=== PATIENT | male | born 1940 ===

== ENCOUNTER 2021-10-06 17:10 | Inpatient (IN) | payer MEDICARE, SELFPAY ==
[2021-10-06] VITALS (9 sets, daily range): BP systolic 144–147; BP diastolic 72–89; PULSE 60–108; RESP 14–26; TEMP 36.7; O2SAT 92–97
--- NOTE | 2021-10-06 | DI.RAD_ITS ---
Exam(s) XR PORTABLE CHEST AP EXAM: XR PORTABLE CHEST AP CLINICAL HISTORY: Acute on chronic resp failure, pleural effusions TECHNIQUE: 2D digital imaging was performed of the chest. One image was obtained. An AP view was ob tained. COMPARISON: DX XR CHEST 1 VIEW from 10/06/2021 FINDINGS: MEDIASTINUM: Normal. HEART: Mild cardiomegaly. PULMONARY VASCULATURE: Normal. LUNGS: Bilateral basilar opacities. Prominent interstitial infiltrates are seen suggesting edema. PLEURAL SPACE: Bilateral small pleural effusions are present. No pneumothorax. BONE:Within normal limits for the patient's age. OTHER FINDINGS:Normal. IMPRESSION: There has been no significant change in appearance of the chest compared to the prior examination. DATA REPOSITORY: RADIATION DOSE DELIVERED:
--- NOTE | 2021-10-06 18:07 | RESPIRATORY ---
Pt's baseline is 4.5L O2 at home 01/09. [facility]. Pt denies having any kind of NIV device at home currently.
[2021-10-06 18:19] LABS: BE -5 mmol/L (-2-3); HCO3 21 mmol/L (22-26); pCO2 35 mmHg (35-45); pH 7.39 (7.35-7.45); pO2 60 mmHg (80-105); sO2 92 % (95-98); tCO2 19 mmol/L (23-27)
[2021-10-06 18:21] LABS: FIO2 40 %; FIO2L BIPAP 14/8 L; Site Right Radial
[2021-10-06 19:17] LABS: NT-proBNP 18049 pg/mL (<300)
[2021-10-06 19:21] LABS: Troponin I 229 ng/L (<or=60)
[2021-10-06 19:43] LABS: Procalcitonin < 0.1 ng/mL
[2021-10-06] MEDS: guaiFENesin 600 MG TABCR PO (20:09)
[2021-10-06] MEDS: Metoprolol 25 MG TAB PO (20:09)
[2021-10-06] MEDS: Atorvastatin 20 MG TAB PO (20:09)
[2021-10-06] MEDS: Furosemide 20 MG/2 ML VIAL IVP (20:10)
[2021-10-06] MEDS: hydrALAZINE 10 MG TAB 20 MG PO (20:10)
--- NOTE | 2021-10-06 20:56 | DI.VRAD_ITS ---
PROCEDURE INFORMATION: Exam: XR Chest Exam date and time: 10/06/2021 8:31 PM Age: 81 years old Clinical indication: Other: Acute on chronic resp failure, pleural effusions TECHNIQUE: Imaging protocol: Radiologic exam of the chest. Views: 1 view. COMPARISON: DX XR CHEST 1 VIEW 10/06/2021 2:03 PM FINDINGS: Lungs: Interstitial edema redemonstrated and bibasilar opacities Pleural spaces: Small effusions bilaterally. No pneumothorax. Heart/Mediastinum: Mild cardiomegaly. Bones/joints: Degenerative changes in the shoulders IMPRESSION: Grossly stable edema and bibasilar opacities/pleural effusions Dictated and Authenticated by: Andi Smith MD. Ordering:REID Calabrese MD
[2021-10-07] VITALS (12 sets, daily range): BP systolic 108–131; BP diastolic 60–79; PULSE 62–120; RESP 16–28; TEMP 36.3–36.7; O2SAT 90–96
[2021-10-07 06:38] LABS: Abs Immature Grans 0.05 10^3/uL (0.0-0.06); Absolute Lymphocyte Count 0.45 10^3/uL (1.2-3.4); Absolute Monocyte Count 0.32 10^3/uL (0.1-0.8); Absolute Neutrophil Count 4.54 10^3/uL (1.2-6.7); HCT 30.1 % (40.0-50.0); HGB 9.1 g/dL (13.5-17.5); Immature Grans % 0.9; Lymphocytes % 8.4; MCH 28.3 pg (27.0-33.0); MCHC 30.2 % (32.0-36.0); MCV 94 fL (80-95); MPV 10.3 fL (8.0-11.0); Neutrophils % 84.7; Platelet Count 259 10^3/uL (130-400); RBC 3.21 10^6/uL (4.36-5.78); RDW 16.7 % (11.8-14.1); RDW-SD 57.3 fL; WBC 5.36 10^3/uL (4.4-10.8)
--- NOTE | 2021-10-07 06:51 | W.PM.HP.N ---
Date of service: 10/06/21 Time of Service: 18:10 Assessment and Plan Assessment and plan (1) Acute and chronic respiratory failure: Status: Acute Assessment and plan: Pts baseline supplemental O2 need is 4.5L. ABG on admission while on BiPAP 22/09: pH 7.385. pCO2 34.5. pO2 59.8. HCO 20.6. + pulmonary edema and pleural effusions. Normal procal. Lactate 2.6. WBC [place] [id number]; partially d/t CKD. Etiology; acute CHF, pleural effusions in setting of pulmonary hypertension and COPD. Given 20mg IV lasix at [facility]. Administer 40mg IV now and monitor effect. Echocardiogram ordered. Now on CPAP and stable. (2) NSTEMI (non-ST elevated myocardial infarction): Status: Acute Assessment and plan: Troponin at [facility] was 245 (normal is <76). Repeat at [facility] on admission 229. Demand ischemia. Echocardiogram. Monitor. No known h/o CAD. (3) Pleural effusion: Status: Acute Assessment and plan: CXR, PA/Lat. Likely secondary to CHF. (4) COPD (chronic obstructive pulmonary disease): Status: Chronic Assessment and plan: Medication list from [facility] does not show any medications/inhalers for COPD. Will need to verify this and d/w pulmonology. PRN albuterol updrafts ordered. (5) CKD (chronic kidney disease) stage 4, GFR 15-29 ml/min: Status: Acute Assessment and plan: According to records from [facility], his baseline creatine in Nov was in the 1.25 range. Creatinine at [facility] at time of this current evaluation was 2.7. Monitor; particularly while diuresing. (6) Essential hypertension: Status: Acute Assessment and plan: His lisinopril was stopped when at [facility] and his hydralazine was doubled from 10mg TID to 20mg TID. Monitor. (7) Diabetes mellitus type 2 in obese: Status: Acute Assessment and plan: Cont his home dose of glipizide. Holding metformin in event he might require contrast for a study; restart if contrast not going to be administered. ACHS fingerstick glucose monitoring. Sensitive sliding scale insulin ordered. Diabetic carb controlled diet. (8) Hyperkalemia: Status: Acute Assessment and plan: Likely to resolve with diureses. Monitor. (9) COVID-19: Status: Acute Assessment and plan: According to patient and his [facility] records, he was positive on 09/19. Maintained then on his usual supplemental O2 per NC. Still + by PCR but is > 10 days from initial positive test; no Covid precautions. History of Present Illness History of Present Illness Chief Complaint: Shortness of air Narrative: This is an 81 yo male with a PMH of CKD, COPD, chronic respiratory failure, DM2, Covid-19, HTN, pulmonary hypertension, restrictive lung disease. He presented to [facility] initially on the day of this admission. Found to be in acute on chronic respiratory failure and, on imaging, to have mod. to lg. bilateral pleural effusions. He was placed on BiPAP. He was accepted for transfer to [facility] given their hospitalists hesitancy to admit him d/t lack of specialty care at their facility. He states increasing SOA over appx 4 days. No purulent sputum. No fever. No CP/palpitations. He transferred from [facility] to [facility] in the month d/t acute kidney failure; thought to be ATN secondary to overdiuresis and diarrhea. While there he was dxd with Covid-19 on 09/19/21. He endorses requiring his usual 4.5L supplemental O2 per NC while in the hospital at [facility]. Review of Systems All systems reviewed & are unremarkable except as noted in HPI and below PFSH All Active Problems (Updated 10/07/21 @ 14:52 by Shellie Rea MD) Pulmonary hypertension (Acute) COVID-19 (Acute) Hyperkalemia (Acute) Diabetes mellitus type 2 in obese (Acute) Essential hypertension (Acute) CKD (chronic kidney disease) stage 4, GFR 15-29 ml/min (Acute) COPD (chronic obstructive pulmonary disease) (Chronic) Pleural effusion (Acute) NSTEMI (non-ST elevated myocardial infarction) (Acute) Acute and chronic respiratory failure (Acute) Social History Smoking/Tobacco Use Status: Unknown Smoking risk assessment performed?: Yes Meds Allergies and Home Medications Allergies Allergy/AdvReac Type Severity Reaction Status Date / Time No Known Allergies Allergy Unverified 10/06/21 20:14 Exam Narrative Exam Narrative: Pt lying in bed. CPAP in place. Conversant. Const General: cooperative and no acute distress Nutritional Appearance: obese Orientation: alert Eyes General: appearance normal, both eyes and all related structures Sclera: sclerae normal EOM: no movement deficit Neck Neck: full ROM and JVD Resp Effort & Inspection: normal respiratory effort and able to speak in complete sentences Auscultation: diminished lung sounds bilaterally (throughout but more pronounced in bases) and rhonchi Cardio Rate: tachycardic Rhythm: regular rhythm Heart Sounds: S1 normal and S2 normal GI Inspection: obesity Palpation: soft and nontender Auscultation: normal bowel sounds Skin General skin exam: no rashes or lesions noted and ecchymosis (Scattered on all extremities. ) Neuro General: no focal motor deficits Cranial Nerves: facial strength normal Cognition: normal cognition Speech: speech normal Extrem General: no calf tenderness, edema and other (CESAR hose in place) Psych Appearance: grossly normal Affect: normal affect Results Labs Result diagrams: 10/07/21 05:31 10/07/21 05:31 Labs: Laboratory Results - last 24 hr 10/06/21 10/06/21 10/06/21 18:20 18:35 18:35 WBC RBC Hgb Hct MCV MCH MCHC RDW Plt Count MPV Immature Gran % Neutrophils % Lymphocytes % Monocytes % Eosinophils % Basophils % Nucleated RBC % Absolute Neutrophils Absolute Lymphocytes Absolute Monocytes Absolute Eosinophils Absolute Basophils ABG Sample Site Right Radial ABG pH 7.39 ABG pCO2 35 ABG pO2 60 L ABG HCO3 21 L ABG Total CO2 19 L ABG O2 Saturation 92 L ABG Base Excess -5 L VBG pH VBG pCO2 VBG pO2 VBG HCO3 VBG Total CO2 VBG O2 Saturation VBG Base Excess Oxygen Liter Flow BIPAP 14/8 FiO2 40 Troponin I 229 H* NT-Pro-B Natriuret Pep 50039 H Procalcitonin < 0.1 10/06/21 10/07/21 Unknown 05:31 WBC 5.36 RBC 3.21 L Hgb 9.1 L Hct 30.1 L MCV 94 MCH 28.3 MCHC 30.2 L RDW 16.7 H Plt Count 259 MPV 10.3 Immature Gran % 0.9 Neutrophils % 84.7 Lymphocytes % 8.4 Monocytes % 6.0 Eosinophils % 0.0 Basophils % 0.0 Nucleated RBC % 0.0 Absolute Neutrophils 4.54 Absolute Lymphocytes 0.45 L Absolute Monocytes 0.32 Absolute Eosinophils 0.00 Absolute Basophils 0.00 ABG Sample Site ABG pH ABG pCO2 ABG pO2 ABG HCO3 ABG Total CO2 ABG O2 Saturation ABG Base Excess VBG pH Cancelled VBG pCO2 Cancelled VBG pO2 Cancelled VBG HCO3 Cancelled VBG Total CO2 Cancelled VBG O2 Saturation Cancelled VBG Base Excess Cancelled Oxygen Liter Flow FiO2 Troponin I NT-Pro-B Natriuret Pep Procalcitonin Last Vital Signs Temp 36.7 C 10/06/21 18:22 Pulse 60 10/06/21 23:00 Resp 21 10/06/21 19:28 BP 144/89 H 10/06/21 19:28 Pulse Ox 97 10/06/21 19:28
[2021-10-07 06:53] LABS: Anion Gap 4.6 mmol/L (3-11); BUN 48 mg/dL (7-18); CO2 26.4 mmol/L (21.0-32.0); CREATININE 2.9 mg/dL (0.70-1.30); Calcium 8.5 mg/dL (8.5-10.1); Chloride 106 mmol/L (98-107); Estimated GFR 20.89 (mL/min/1.73m2); Glucose 193 mg/dL (74-106); Magnesium 1.7 mg/dL (1.8-2.4); Potassium 5.8 mmol/L (3.5-5.1); Sodium 137 mmol/L (136-145)
[2021-10-07 07:49] LABS: Troponin I 177 ng/L (<or=60)
--- NOTE | 2021-10-07 08:00 | DI.US_ITS ---
APPROVED REPORT EXAM: Comprehensive 2D, Doppler, and color-flow Echocardiogram Patient Location: In-Patient Room/Bed: [id number] Creative Services Director: Sabina Trujillo RDCS (AE) Indications: Pulmonary vascular congestion, copd, HTN Other Information Study Quality: Adequate Conclusion Normal left ventricular wall thickness and chamber size. Estimated ejection fraction is 60%. Wall m otion is normal The right atrium and right ventricle are moderately dilated. Left atrium is mildly dilated The aortic valve is trileaflet and sclerotic, with trace to mild regurgitation Mitral annular calcification, mild mitral regurgitation Normal tricuspid valve with moderate regurgitation. Estimated right ventricular systolic pressure is 75 mmHg, severe pulmonary hypertension Normal pulmonic valve with mild to moderate regurgitation Mildly dilated ascending aorta Wall motion Left Ventricle The left ventricle is normal size. The left ventricular systolic function is normal. The left ventric ular ejection fraction is within the normal range. There is normal left ventricular wall thickness. T here is normal LV segmental wall motion. There is no ventricular septal defect visualized. LVEF is 58 %. Right Ventricle Right ventricle is moderately dilated. The right ventricular systolic function is normal. The RVSP is 75.2 mmHg. Atria Left atrium is mildly dilated. Right atrium is moderately dilated. The interatrial septum is intact w ith no evidence for an atrial septal defect. Aortic Valve The Aortic valve is sclerotic. Aortic valve is trileaflet. There is no aortic valvular stenosis. Trac e to mild aortic regurgitation. Mitral Valve Moderate mitral annular calcification. No evidence of mitral valve stenosis. Mild mitral regurgitatio n. Tricuspid Valve The tricuspid valve is normal in structure. There is no tricuspid valve stenosis. Moderate tricuspid regurgitation. Pulmonic Valve The pulmonary valve is normal in structure. There is no pulmonic valvular stenosis. Mild to moderate pulmonic regurgitation. Great Vessels The aortic root is normal in size. The ascending aorta is mildly dilated. Aortic arch is not well vis ualized. The IVC collapses <50% with inspiration. Pericardium Trace pericardial effusion. 2D Dimensions IVSD d PLAX 0.87 cm M: 0.6-1.2 LV Vol A2C d MOD 93.2 mL LVPW d PLAX 0.89 cm M: 0.6 - 1.2 LV Vol A4C d MOD 109.3 mL LVID d PLAX 4.44 cm M: 4.2 - 5.8 LV EF A4C MOD 57.0 % LVDs 3.10 cm M: 2.5 - 4.0 LV EF A2C MOD 58.0 % Ao Root d 3.08 cm M: 3.1 - 3.7 LV EF Biplane MOD 58.4 % RA Area A4C 35.49 cm2 SV 61.19 mL RA Vol/ BSA A4C s A-L 66.5 mL/m2 SV Index 25.70 mL/m2 Ao Asc Diam d 3.55 cm M: 2.6 - 3.4 LV EF Teichholz 56.7 % LVEF (Parrish's) 58.39 % M: 52 - 72 LV Volume 74.41 mL M: 62 - 150 LV Volume Index 31.26 mL/m2 M: 34 - 74 LV Vol Biplane MOD 104.8 mL FS 29.50 % M-Mode TAPSE 1.17 cm (M/F) >1.7 LV Diastology MV E' medial 0.076 (>0.07 m/s) MV E Vmax 1.23 (0.4-1.3 m/s) LV E/e MED 16.05 (<14) MV E' lateral 0.095 (>0.1 m/s) LV E/e LAT 12.90 (<14) MV E/E' medial 16.09 MV E/E' lateral 12.94 Aortic Valve LVOT Area 3.02 cm2 AoV Area Vmax 1.81 cm2 LVOT Vmax 0.79 m/s AoV Area/ BSA (Vmax) 0.76 cm2/m2 LVOT Mean Troy. 0.51 m/s CHIKA Mean Troy. 1.80 cm2 LVOT Peak Grad 2.5 mmHg CHIKA Mean Troy. Index 0.76 cm2/m2 LVOT Mean Grad 1.2 mmHg AR DT 1553 msec LVOT VTI 0.173 m AR PHT 450 msec LVOT Diam s 1.95 cm AoV Vmax 1.32 m/s Velocity Ratio 0.59 AoV Mean Troy. 0.86 m/s AoV Peak Grad 7.0 mmHg LVOT SV 52.43 mL AoV Mean Grad 3.3 mmHg AoV VTI 0.216 m AoV Area VTI 2.43 cm2 AoV Area/ BSA (VTI) 1.02 cm/m2 Mitral Valve MV DT 161 (160-240 msec) MV PHT 47 msec MV Area PHT 4.71 cm2 MV VTI 0.259 m MV Area VTI 2.02 (4.0-6.0 cm2) Pulmonary Valve PV Vmax 1.17 (0.5-1.5 m/s) RVOT Peak Gr. 1.07 mmHg PV Peak Grad 5.5 mmHg RVOT Mean Gr. 0.50 mmHg PV Mean Grad 3.8 mmHg RVOT VTI 0.098 m PV VTI 0.236 m RVOT Vmax 0.52 m/s Tricuspid Valve TR Peak Grad 67.1 mmHg TR Vmax 4.10 m/s RA Pressure 8.00 mmHg RVSP (TR) 75.2 mmHg
--- NOTE | 2021-10-07 09:05 | W.PULMCON ---
General Date Of Service Date of service: 10/07/21 Time of Service: 09:05 Reason for Consult: COPD Assessment and Plan Assessment and plan (1) COPD (chronic obstructive pulmonary disease): Status: Chronic (2) Pulmonary hypertension: Status: Acute Assessment and plan: This is a 81 yo man who has HFpEF, A. fib on Eliquis, pulmonary hypertension and COPD in addition to hypoxic respiratory failure on home O2 who is admitted for acute on chronic hypoxic respiratory failure. He is volume overloaded and I do not believe he is in a COPD exacerbation. He had had a RHC at [facility] that confirmed his PH with a wedge of 20. I suspect his pulmonary hypertension is multifactorial, but I cannot see that CTEPH has been evaluated, nor has ASIF. While he is here, we can get a VQ scan to assess for CTEPH but this should wait until he is closer to euvolemia. As an outpatient he should have a sleep study if not already completed. I do think he would benefit from outpatient pulmonary care for both the pulmonary hypertension and the COPD. Since he is [facility], I will need a referral from his PCP before I can see him in the clinic. COPD - start Stiolto - recommend he continue this as an outpatient - continue prn albuterol - Mucinex - recommend outpatient PFT's - would recommend outpatient pulmonary referral - need PCP referral as he is a [facility] patient Acute on chronic hypoxic respiratory failure - supplemental O2 for sat goal 88-92% - IS and VibraPEP Pulmonary Hypertension - recommend VQ scan once close to euvolemia - recommend outpatient sleep study History of Present Illness Narrative: This is an 81 yo man admitted to [facility] for respiratory failure due to volume overload. He has a history of reported COPD but is only on oxygen for this. He has not had pulmonary function testing completed in the past and states he has never been on inhalers. He has never seen a dry cell sealer before. He tells me his breathing is improved on the mask. He does not wear CPAP or BiPAP at home at night time. His echocardiogram show severe pulmonary hypertension with RVSP of 75mmHg which is likely the main contributor to his need of oxygen. His CXR is consistent with volume overload but his echo does not show heart failure as a cause of his severe pulmonary hypertension, although he does have diastolic heart failure as well as A. fib. He has seen [facility] cardiology in the past and has had a RHC for his PH: PAP: 75/35, PCW: 20, CO: 5 I cannot see that he has been fully evaluated for the etiology of his pulmonary hypertension. He is a poor historian. Review of Systems All systems reviewed & are unremarkable except as noted in HPI and below PFSH All Active Problems (Updated 10/07/21 @ 14:52 by Shellie Rea MD) Pulmonary hypertension (Acute) COVID-19 (Acute) Hyperkalemia (Acute) Diabetes mellitus type 2 in obese (Acute) Essential hypertension (Acute) CKD (chronic kidney disease) stage 4, GFR 15-29 ml/min (Acute) COPD (chronic obstructive pulmonary disease) (Chronic) Pleural effusion (Acute) NSTEMI (non-ST elevated myocardial infarction) (Acute) Acute and chronic respiratory failure (Acute) Social History Smoking/Tobacco Use Status: Unknown Smoking risk assessment performed?: Yes Visit Medication and Allergies Active Medications Generic Name Dose Route Start Last Admin Trade Name Freq PRN Reason Stop Dose Admin Acetaminophen 0 mg 10/06/21 17:10 Acetaminophen 325 Mg Tab PO Q4H PRN PRN Albuterol Sulfate 2.5 mg 10/06/21 17:10 Albuterol 2.5 Mg/3 Ml Inh Soln Vial UPD Q2H PRN PRN Apixaban 5 mg 10/07/21 08:30 Apixaban 5 Mg Tab PO BID MYNOR Atorvastatin Calcium 20 mg 10/06/21 20:00 10/06/21 20:09 Atorvastatin 20 Mg Tab PO 20 mg QPM MYNOR Administration Carboxymethylcellulose Sodium 1 each 10/06/21 19:12 Refresh Plus Eye Drops 0.4ml OU PRN PRN Dextrose 0 gm 10/06/21 20:41 Glucose 40% Oral Solution 15 Gm/37.5 Gm Tube PO DIRECTED PRN Dextrose/Water 0 gm 10/06/21 20:41 Dextrose 50%-Water 25 Gm/50 Ml Syr IVP DIRECTED PRN Dimethicone/Zinc Oxide 0 gm 10/06/21 17:10 Meng Protect Cream 142 Gm Tube TP PRN PRN Glipizide 5 mg 10/07/21 07:30 Glipizide 5 Mg Tab PO BID@0730,1630 MYNOR Guaifenesin 600 mg 10/06/21 20:00 10/06/21 20:09 Guaifenesin 600 Mg Tabcr PO 600 mg BID MYNOR Administration Hydralazine HCl 20 mg 10/06/21 20:00 10/06/21 20:10 Hydralazine 10 Mg Tab PO 20 mg TID [facility] Administration Insulin Aspart 0 units 10/07/21 08:00 Insulin Aspart 300 Units/3 Ml Pen SC 0800,1200,1700 [facility] Protocol Magnesium Oxide 400 mg 10/07/21 08:30 Magnesium Oxide 400 Mg Tab PO BID [facility] Metoprolol Tartrate 25 mg 10/06/21 20:00 10/06/21 20:09 Metoprolol 25 Mg Tab PO 25 mg BID MYNOR Administration Polyethylene Glycol 17 gm 10/06/21 17:10 Polyethylene Glycol 3350 17 Gm Packet PO DAILY PRN PRN Constipation Tamsulosin HCl 0.8 mg 10/07/21 08:30 Tamsulosin 0.4 Mg Capcr PO DAILY [facility] Allergies No Known Allergies Allergy (Unverified 10/06/21 20:14) Exam Narrative Exam Narrative: Gen: NAD, normal respiratory effort, obese HENT: PERRL Chest: No respiratory distress, normal appearance of chest, clear to auscultation bilaterally, no crackles or wheezes, normal inspiratory effort Heart: regular rate and rhythym, no murmurs, rubs or gallops Abdomen: Non-distended, soft, non tender Extremities: LE edema Neuro: AAOx3 , non focal Psych: cooperative, appropriate mental affect Results Last Vital Signs Temp 36.7 C 10/06/21 18:22 Pulse 79 10/07/21 08:51 Resp 17 10/07/21 08:51 BP 144/89 H 10/06/21 19:28 Pulse Ox 95 10/07/21 08:51 Labs Result diagrams: 10/07/21 05:31 10/07/21 05:31 Labs: Laboratory Results - last 24 hr 10/06/21 10/06/21 10/06/21 18:20 18:35 18:35 WBC RBC Hgb Hct MCV MCH MCHC RDW Plt Count MPV Immature Gran % Neutrophils % Lymphocytes % Monocytes % Eosinophils % Basophils % Nucleated RBC % Absolute Neutrophils Absolute Lymphocytes Absolute Monocytes Absolute Eosinophils Absolute Basophils ABG Sample Site Right Radial ABG pH 7.39 ABG pCO2 35 ABG pO2 60 L ABG HCO3 21 L ABG Total CO2 19 L ABG O2 Saturation 92 L ABG Base Excess -5 L VBG pH VBG pCO2 VBG pO2 VBG HCO3 VBG Total CO2 VBG O2 Saturation VBG Base Excess Oxygen Liter Flow BIPAP 14/8 FiO2 40 Sodium Potassium Chloride Carbon Dioxide Anion Gap BUN Creatinine Estimated GFR/1.73 m2 Glucose Calcium Magnesium Troponin I 229 H* NT-Pro-B Natriuret Pep 75285 H Procalcitonin < 0.1 10/06/21 10/07/21 10/07/21 Unknown 05:31 05:31 WBC 5.36 RBC 3.21 L Hgb 9.1 L Hct 30.1 L MCV 94 MCH 28.3 MCHC 30.2 L RDW 16.7 H Plt Count 259 MPV 10.3 Immature Gran % 0.9 Neutrophils % 84.7 Lymphocytes % 8.4 Monocytes % 6.0 Eosinophils % 0.0 Basophils % 0.0 Nucleated RBC % 0.0 Absolute Neutrophils 4.54 Absolute Lymphocytes 0.45 L Absolute Monocytes 0.32 Absolute Eosinophils 0.00 Absolute Basophils 0.00 ABG Sample Site ABG pH ABG pCO2 ABG pO2 ABG HCO3 ABG Total CO2 ABG O2 Saturation ABG Base Excess VBG pH Cancelled VBG pCO2 Cancelled VBG pO2 Cancelled VBG HCO3 Cancelled VBG Total CO2 Cancelled VBG O2 Saturation Cancelled VBG Base Excess Cancelled Oxygen Liter Flow FiO2 Sodium 137 Potassium 5.8 H Chloride 106 Carbon Dioxide 26.4 Anion Gap 4.6 BUN 48 H Creatinine 2.9 H Estimated GFR/1.73 m2 20.89 Glucose 193 H Calcium 8.5 Magnesium 1.7 L Troponin I NT-Pro-B Natriuret Pep Procalcitonin 10/07/21 05:31 WBC RBC Hgb Hct MCV MCH MCHC RDW Plt Count MPV Immature Gran % Neutrophils % Lymphocytes % Monocytes % Eosinophils % Basophils % Nucleated RBC % Absolute Neutrophils Absolute Lymphocytes Absolute Monocytes Absolute Eosinophils Absolute Basophils ABG Sample Site ABG pH ABG pCO2 ABG pO2 ABG HCO3 ABG Total CO2 ABG O2 Saturation ABG Base Excess VBG pH VBG pCO2 VBG pO2 VBG HCO3 VBG Total CO2 VBG O2 Saturation VBG Base Excess Oxygen Liter Flow FiO2 Sodium Potassium Chloride Carbon Dioxide Anion Gap BUN Creatinine Estimated GFR/1.73 m2 Glucose Calcium Magnesium Troponin I 177 H* NT-Pro-B Natriuret Pep Procalcitonin Imaging Chest x-ray: report reviewed and image reviewed
--- NOTE | 2021-10-07 09:26 | PDOC.CMIN ---
- If Service Date Differs Date of service: 10/07/21 Time of Service: 09:26 Care Management Initial Assess REASON FOR HOSPITALIZATION:: Acute and chronic respiratory failure PAST MEDICAL HISTORY/PAST SURGICAL HISTORY:: All Active Problems (Updated 10/07/21 @ 07:13 by Guanakito Jordan MD). COVID-19 (Acute). Hyperkalemia (Acute). Diabetes mellitus type 2 in obese (Acute). Essential hypertension (Acute). CKD (chronic kidney disease) stage 4, GFR 15-29 ml/min (Acute). COPD (chronic obstructive pulmonary disease) (Chronic). Pleural effusion (Acute). NSTEMI (non-ST elevated myocardial infarction) (Acute). Acute and chronic respiratory failure (Acute) PREVIOUS FUNCTIONAL STATUS/SOCIAL/FAMILY SUPPORTS:: Timi lives in [place] with his Emily. He is retired from the [employer] and shares that he is [facility] connected. Timi requires some assistance with his ADL's. He recently started using a rolling walker with a seat. His provides his transportation when she us able, other times he uses EMS for transportation. CURRENT FUNCTIONAL STATUS:: Timi was sitting up in his chair when CM met with him. He is alert, oriented and easy to engage in conversation. Timi shares with CM that he's has an itchy, scaly area on his buttocks since his stay in [place]. He shares that the area is quite painful. CM reported to nursing and will continue to follow. ADVANCE DIRECTIVES:: None on file. Has patient been provided with info about the portal/API?: Yes Did the patient sign up for the portal?: No CODE STATUS:: Full Code INSURANCE COVERAGE / FINANCIAL ISSUES:: Medicare CURRENT HOME/COMMUNITY SERVICES/EQUIPMENT:: Home O2. Left Chair. Has a Cane and Rolling Walker with a Seat. Per pt, [facility] connected. CM left message for Tammy at the [facility]. PRIMARY CARE PHYSICIAN:: Jonathan Parson POTENTIAL DISCHARGE NEEDS:: Discharge plan of care, follow up appointments, Home O2 tank to transport. PATIENT/FAMILY EDUCATION NEEDS:: Review discharge instructions, limitations, medications and plan to follow up with community providers. ask me three. ANTICIPATED BARRIERS TO DISCHARGE:: None identified. TRANSPORTATION:: Via private vehicle with family vs. EMS transportation. PLAN:: Timi is being closely monitored and treated for respiratory failure and bilateral pleural effusions. Anticipate, Timi will discharge home via private vehicle with family vs EMS transport, when medically ready. He will need Oxygen to transport, and is on 4.5 L NC baseline. Timi will follow up with community providers and discharge plan of care as prescribed. CM will continue to follow.
[2021-10-07] MEDS: Magnesium Oxide 400 MG TAB PO ×2 (09:41→20:15)
[2021-10-07] MEDS: glipiZIDE 5 MG TAB PO ×2 (09:41→16:36)
[2021-10-07] MEDS: guaiFENesin 600 MG TABCR PO ×2 (09:41→20:18)
[2021-10-07] MEDS: Metoprolol 25 MG TAB PO ×2 (09:42→20:18)
[2021-10-07] MEDS: Tamsulosin 0.4 MG CAPCR 0.8 MG PO (09:42)
[2021-10-07] MEDS: hydrALAZINE 10 MG TAB 20 MG PO ×3 (09:43→20:15)
[2021-10-07] MEDS: Insulin Aspart 300 UNITS/3 ML PEN SC ×2 (09:50→12:47)
--- NOTE | 2021-10-07 11:54 | W.INDIABCONS ---
Date of service: 10/07/21 Time of Service: 11:54 Diabetes Inpatient Consult Reason for Visit: Consult for diabetes education DESCRIPTION/ASSESSMENT: Mr. Iraheta is admitted s/p NSTEMI. His BMI is 37 kg/m2 c/w class 2 obesity. He is on a cho consistent low sodium diet for diabetes and htn. There is no A1C available but given his age and comorbidities, a reasonable A1C target would be 8.0 or less. Blood sugars naturally are above target given the physiologic stress he is under. He is ordered for glipizide 5 mg PO bid and aspart correction. INTERVENTION: Mr. Iraheta may require some basal insulin while he is here given the physiologic stress that is increasing his blood sugars. Unable to do diabetes education at this time due to COVID status. Given his age and especially if his A1C is under 8, he may be best managed with relying on medication to keep his blood sugars reasonable. PLAN: Will continue to follow weight, blood sugar, and PO intake. Will remain available for diabetes education for patient should he be interested. Thank you for the consult. Time Spent in Nutritional Counseling and Treatment: 0
[2021-10-07] MEDS: Apixaban 5 MG TAB 2.5 MG PO ×2 (12:46→20:16)
--- NOTE | 2021-10-07 18:48 | W.PM.PROGNOT ---
Date of Service Date of service: 10/07/21 Time of Service: 18:49 Assessment and Plan Assessment and plan (1) Acute and chronic respiratory failure: Status: Acute Assessment and plan: Pts baseline supplemental O2 need is 4.5L. Now back to baseline. ABG on admission while on BiPAP 22/09: pH 7.385. pCO2 34.5. pO2 59.8. HCO 20.6. + pulmonary edema and pleural effusions. Normal procal. Lactate 2.6. WBC [place] [address]; partially d/t CKD. Severe pulmonary hypertension seen on echocardiogram. PAP of 75/35. Also diastolic CHF. Pulmonary consult appreciated. Will need pulmonary f/u as outpt (2) NSTEMI (non-ST elevated myocardial infarction): Status: Acute Assessment and plan: Troponin at [facility] was 245 (normal is <76). Repeat at [facility] on admission 229 > 117 Demand ischemia. Echocardiogram w/o wall motion abnormalities. EF of 65% Monitor. No known h/o CAD. (3) COPD (chronic obstructive pulmonary disease): Status: Chronic Assessment and plan: Medication list from [facility] does not show any medications/inhalers for COPD. PRN albuterol updrafts ordered. Pulmonary initiated Stiolto. Mucinex. Vibrapep and IS. Outpt PFT's and f/u with pulmonary ([facility] so needs outpt referral from PCP to f/u with pulmonary) (4) CKD (chronic kidney disease) stage 4, GFR 15-29 ml/min: Status: Acute Assessment and plan: According to records from [facility], his baseline creatine in Nov was in the 1.25 range. Creatinine at [facility] at time of this current evaluation was 2.7. Monitor; particularly while diuresing. (5) Essential hypertension: Status: Acute Assessment and plan: His lisinopril was stopped when at [place] and his hydralazine was doubled from 10mg TID to 20mg TID. Monitor. (6) Diabetes mellitus type 2 in obese: Status: Acute Assessment and plan: Cont his home dose of glipizide. Restart metformin. ACHS fingerstick glucose monitoring. Sensitive sliding scale insulin ordered. Diabetic carb controlled diet. (7) Hyperkalemia: Status: Acute Assessment and plan: Related to CKD [place] jean 1. Monitor. (8) COVID-19: Status: Acute Assessment and plan: According to patient and his [place] records, he was positive on 09/19. Maintained then on his usual supplemental O2 per NC. Still + by PCR but is > 10 days from initial positive test; no Covid precautions. Subjective Subjective Patient reports: no new complaints, feels better, tolerating a regular diet and afebrile; denies nausea or vomiting Exam Narrative Exam Narrative: Gen:Lying in bed. Conversant. HENT: Sclera clear. Chest: Clear. No increased WOB. Heart: regular rate and rhythym. No murmur. Abdomen: Non-distended, soft, non tender Extremities: LE edema. TEDs in place. Neuro: AAOx3 . No focal muscle weakness. Psych: Affect normal. Cognition normal. Objective Last Vital Signs Temp 36.3 C L 10/07/21 15:30 Pulse 81 10/07/21 15:30 Resp 22 10/07/21 15:30 BP 108/71 10/07/21 15:30 Pulse Ox 92 10/07/21 15:30 Laboratory Results - last 24 hr 10/06/21 10/06/21 10/07/21 18:35 18:35 05:31 WBC RBC Hgb Hct MCV MCH MCHC RDW Plt Count MPV Immature Gran % Neutrophils % Lymphocytes % Monocytes % Eosinophils % Basophils % Nucleated RBC % Absolute Neutrophils Absolute Lymphocytes Absolute Monocytes Absolute Eosinophils Absolute Basophils Sodium 137 Potassium 5.8 H Chloride 106 Carbon Dioxide 26.4 Anion Gap 4.6 BUN 48 H Creatinine 2.9 H Estimated GFR/1.73 m2 20.89 Glucose 193 H Calcium 8.5 Magnesium 1.7 L Troponin I 229 H* NT-Pro-B Natriuret Pep 24933 H Procalcitonin < 0.1 10/07/21 10/07/21 05:31 05:31 WBC 5.36 RBC 3.21 L Hgb 9.1 L Hct 30.1 L MCV 94 MCH 28.3 MCHC 30.2 L RDW 16.7 H Plt Count 259 MPV 10.3 Immature Gran % 0.9 Neutrophils % 84.7 Lymphocytes % 8.4 Monocytes % 6.0 Eosinophils % 0.0 Basophils % 0.0 Nucleated RBC % 0.0 Absolute Neutrophils 4.54 Absolute Lymphocytes 0.45 L Absolute Monocytes 0.32 Absolute Eosinophils 0.00 Absolute Basophils 0.00 Sodium Potassium Chloride Carbon Dioxide Anion Gap BUN Creatinine Estimated GFR/1.73 m2 Glucose Calcium Magnesium Troponin I 177 H* NT-Pro-B Natriuret Pep Procalcitonin
[2021-10-07] MEDS: Sodium Zirconium Cyclosilicate 10 GM PKT PO (20:13)
[2021-10-07] MEDS: Atorvastatin 20 MG TAB PO (20:15)
[2021-10-07] MEDS: Simvastatin 40 MG TAB PO (20:18)
[2021-10-08] VITALS (8 sets, daily range): BP systolic 108–126; BP diastolic 67–80; PULSE 65–108; RESP 16–24; TEMP 35.2–36.8; O2SAT 92–95
[2021-10-08 06:19] LABS: Abs Immature Grans 0.03 10^3/uL (0.0-0.06); Absolute Basophil Count 0.02 10^3/uL (0.0-0.2); Absolute Eosinophil Count 0.02 10^3/uL (0.0-0.7); Absolute Lymphocyte Count 0.76 10^3/uL (1.2-3.4); Absolute Monocyte Count 0.73 10^3/uL (0.1-0.8); Absolute Neutrophil Count 5.24 10^3/uL (1.2-6.7); Basophils % 0.3; Eosinophils % 0.3; HCT 30.1 % (40.0-50.0); HGB 9.3 g/dL (13.5-17.5); Immature Grans % 0.4; Lymphocytes % 11.2; MCH 28.8 pg (27.0-33.0); MCHC 30.9 % (32.0-36.0); MCV 93 fL (80-95); MPV 10.3 fL (8.0-11.0); Monocytes % 10.7; Neutrophils % 77.1; Platelet Count 283 10^3/uL (130-400); RBC 3.23 10^6/uL (4.36-5.78); RDW 16.6 % (11.8-14.1); RDW-SD 56.5 fL
[2021-10-08 06:27] LABS: Anion Gap 6.7 mmol/L (3-11); BUN 58 mg/dL (7-18); CO2 26.3 mmol/L (21.0-32.0); CREATININE 2.8 mg/dL (0.70-1.30); Calcium 8.1 mg/dL (8.5-10.1); Chloride 105 mmol/L (98-107); Estimated GFR 21.71 (mL/min/1.73m2); Glucose 103 mg/dL (74-106); Magnesium 1.8 mg/dL (1.8-2.4); Potassium 5.2 mmol/L (3.5-5.1); Sodium 138 mmol/L (136-145)
[2021-10-08] MEDS: Tiotropium/Olodaterol 10 PUFF INHALER 2 PUFF IH (07:37)
[2021-10-08] MEDS: Apixaban 5 MG TAB 2.5 MG PO (08:33)
[2021-10-08] MEDS: Magnesium Oxide 400 MG TAB PO ×2 (08:33→19:26)
[2021-10-08] MEDS: glipiZIDE 5 MG TAB PO ×2 (08:33→16:44)
[2021-10-08] MEDS: metFORMIN 500 MG TAB 1000 MG PO ×2 (08:33→16:44)
[2021-10-08] MEDS: Metoprolol 25 MG TAB PO ×2 (08:33→19:27)
[2021-10-08] MEDS: guaiFENesin 600 MG TABCR PO ×2 (08:33→19:26)
[2021-10-08] MEDS: hydrALAZINE 10 MG TAB 20 MG PO ×3 (08:33→19:26)
[2021-10-08] MEDS: Tamsulosin 0.4 MG CAPCR 0.8 MG PO (08:33)
[2021-10-08] MEDS: Polyethylene Glycol 3350 17 GM PACKET PO (08:33)
[2021-10-08] MEDS: Insulin Aspart 300 UNITS/3 ML PEN SC (12:24)
[2021-10-08] MEDS: metOLazone 2.5 MG TAB 5 MG PO (12:24)
--- NOTE | 2021-10-08 13:27 | W.PM.PROGNOT ---
Date of Service Date of service: 10/08/21 Time of Service: 13:27 Assessment and Plan Assessment and plan (1) Acute and chronic respiratory failure: Status: Acute Assessment and plan: Pts baseline supplemental O2 need is 4.5L. Now back to baseline. ABG on admission while on BiPAP 22/09: pH 7.385. pCO2 34.5. pO2 59.8. HCO 20.6. + pulmonary edema and pleural [place]usions[place] [address]; partially d/t CKD. Severe pulmonary hypertension seen on echocardiogram. PAP of 75/35. Also diastolic CHF. Pulmonary consult appreciated. Will need pulmonary f/u as outpt Patient not currently on any diuretics. he did receive single doses of lasix 20 mg IVP on 10/06 and 40 mg IVP on 10/07. he still needs continued diuresis. I have put him on lasix 80 mg IV q12h and given him a dose of zaroxolyn 5 mg po. continue to monitor daily BMP and weights. He needs to be net negative at least a liter per day. (2) NSTEMI (non-ST elevated myocardial infarction): Status: Acute Assessment and plan: Troponin at [facility] was 245 (normal is <76). Repeat at [facility] on admission 229 > 117 Demand ischemia. Echocardiogram w/o wall motion abnormalities. EF of 65% Monitor. No known h/o CAD although suspect he has some underlying CAD. reportedly he has had remote right and left heart cath done at [facility]. Will ask nursing to obtain reports. Per my discussion w/ Dr. Rea this morning, he needs a thorough complete workup for PHTN including V/Q, PSG, PFT's, evaluation for ischemic HD; may need repeat cardiac caths. (3) COPD (chronic obstructive pulmonary disease): Status: Chronic Assessment and plan: Medication list from [facility] does not show any medications/inhalers for COPD. PRN albuterol updrafts ordered. Pulmonary initiated Stiolto. Mucinex. Vibrapep and IS. Outpt PFT's and f/u with pulmonary ([facility] so needs outpt referral from PCP to f/u with pulmonary) (4) CKD (chronic kidney disease) stage 4, GFR 15-29 ml/min: Status: Acute Assessment and plan: According to records from [facility], his baseline creatine in Nov was in the 1.25 range. Creatinine at [facility] at time of this current evaluation was 2.7. Monitor; particularly while diuresing. (5) Essential hypertension: Status: Acute Assessment and plan: His lisinopril was stopped when at [place] and his hydralazine was doubled from 10mg TID to 20mg TID. Monitor. (6) Diabetes mellitus type 2 in obese: Status: Acute Assessment and plan: Cont his home dose of glipizide. Restart metformin. ACHS fingerstick glucose monitoring. Sensitive sliding scale insulin ordered. Diabetic carb controlled diet. (7) Hyperkalemia: Status: Acute Assessment and plan: Related to CKD Lokalma x 1. Monitor. (8) COVID-19: Status: Acute Assessment and plan: According to patient and his [place] records, he was positive on 09/19. Maintained then on his usual supplemental O2 per NC. Still + by PCR but is > 10 days from initial positive test; no Covid precautions. Subjective Subjective Interval history since last seen: Timi still gets short of breath with any kind of activity. Denies any chest pain except some mild discomfort when he coughs. Cough is minimally productive of yellowish sputum. he is afebrile Exam Narrative Exam Narrative: Obese white male sitting up in his chair alert and oriented person place time circumstance. Lungs with diffuse bilateral rales Heart is regular no appreciable murmur rub Abdomen obese soft and nontender Lower extremities with 2+ pitting edema over his pretibial surfaces up to his knees. He is wearing knee-high CESAR hose. Objective Last Vital Signs Temp 35.2 C L 10/08/21 08:14 Pulse 65 10/08/21 10:47 Resp 16 10/08/21 10:47 BP 125/80 10/08/21 10:47 Pulse Ox 95 10/08/21 10:47 Laboratory Results - last 24 hr 10/08/21 10/08/21 05:57 05:57 WBC 6.80 RBC 3.23 L Hgb 9.3 L Hct 30.1 L MCV 93 MCH 28.8 MCHC 30.9 L RDW 16.6 H Plt Count 283 MPV 10.3 Immature Gran % 0.4 Neutrophils % 77.1 Lymphocytes % 11.2 Monocytes % 10.7 Eosinophils % 0.3 Basophils % 0.3 Nucleated RBC % 0.0 Absolute Neutrophils 5.24 Absolute Lymphocytes 0.76 L Absolute Monocytes 0.73 Absolute Eosinophils 0.02 Absolute Basophils 0.02 Sodium 138 Potassium 5.2 H Chloride 105 Carbon Dioxide 26.3 Anion Gap 6.7 BUN 58 H Creatinine 2.8 H Est GFR (CKD-EPI 2020) 21.71 Glucose 103 Calcium 8.1 L Magnesium 1.8
[2021-10-08] MEDS: Normal Saline Flush 10 ML SYR (14:21)
--- NOTE | 2021-10-08 14:53 | W.DIABETESNO ---
Date of service: 10/08/21 Time of Service: 14:53 Diabetes Note Reason for Visit: Diabetes education NOTE: Mr. Iraheta reports that he just eats what he is given and does not need any information at this time regarding diabetes education. As noted in my consult, I think Mr. Iraheta is at target with his diabetes management given his age and other comorbidities. Time Spent in Nutritional Counseling and Treatment: 10 minutes
--- NOTE | 2021-10-08 15:58 | PT.INIE ---
Date of service: 10/08/21 Time of Service: 15:58 PT Notes Visit Reasons: Acute hypoxic respiratory failure,Acute chronic re Physical Therapy Inpatient Initial Evaluation Date: 10/08/2021 Referring Doctor: Jorge Son MD PT Orders: PT CONSULT: Eval/Treat Precautions: Fall. Standard. Activity as tolerated. COVID-19 positive on 09/19/21, no longer on precautions per hospitalist. Patient Profile/Admitting Diagnosis: Patient is an 81-year-old male patient who presented to the [facility] on 10/07/2021 with diagnoses of acute on chronic respiratory failure, NSTEMI, pleural effusion, COPD, CKD, essential hypertension, type II DM, hyperkalemia, and positive COVID-19 as of 09/19/2021. PMHX: All Active Problems?(Updated 10/07/21 @ 14:52 by Shellie Rea MD) Pulmonary hypertension (Acute) COVID-19 (Acute) Hyperkalemia (Acute) Diabetes mellitus type 2 in obese (Acute) Essential hypertension (Acute) CKD (chronic kidney disease) stage 4, GFR 15-29 ml/min (Acute) COPD (chronic obstructive pulmonary disease) (Chronic) Pleural effusion (Acute) NSTEMI (non-ST elevated myocardial infarction) (Acute) Acute and chronic respiratory failure (Acute) Social History/Home Situation: Patient lives with in a private home with 5 steps to enter without rails. He was independent with all aspects of ADLs three weeks ago but declined around the time that he was diagnosed with COVID-19. For the past weeks, his walking is only limited to up to 15 steps before onset of fatigue and shortness of breath. Equipment Owned/DME: [facility] Subjective: Agreeable to PT consult. States that he has been feeling weak and wobbly three weeks ago which made him fall down. Feels that his having COVID really brought him down big time. He did have the [facility] Refused the use of gait belt during the walk. Objective: General Observation: Seated on bedside recliner. Oxygen supplementation in place via NC, 4.5L/minute, IV access in L UE. Baugh catheter in place. SWelling to B legs noted. Mental Status: Alert and oriented as to person, place, time, and purpose. Able to pay attention, focus, and respond appropriately. Pain: 1-2/10 in B legs when he walks ROM: Right Upper Extremity: Shoulder Flexion WFL. Shoulder abduction WFL. Elbow flexion WFL. Wrist flexion WFL. Functional opening and closing of hand WFL. Left Upper Extremity: Shoulder Flexion WFL. Shoulder abduction WFL. Elbow flexion WFL. Wrist flexion WFL. Functional opening and closing of hand WFL. Right Lower Extremity: Hip flexion WFL. Hip abduction WFL. Knee flexion WFL. Ankle dorsiflexion WFL. Ankle plantarflexion WFL. Left Lower Extremity: Hip flexion WFL. Hip abduction WFL. Knee flexion WFL. Ankle dorsiflexion WFL. Ankle plantarflexion WFL. Strength: Right Upper Extremity: Shoulder flexors 5/5. Shoulder abductors 4/5. Elbow flexors 4/5. Elbow extensors 4/5. Desktop Analyst strong. Left Upper Extremity: Shoulder flexors 5/5. Shoulder abductors 4/5. Elbow flexors 4/5. Elbow extensors 4/5. Desktop Analyst strong. Right Lower Extremity: Hip flexors 4/5. Hip abductors 4/5. Knee flexors 5/5. Knee extensors 4/5. Ankle dorsiflexors 4/5. Ankle plantarflexors 4/5. Left Lower Extremity: Hip flexors 4/5. Hip abductors 4/5. Knee flexors 5/5. Knee extensors 4/5. Ankle dorsiflexors 4/5. Ankle plantarflexors 4/5. Bed Mobility/Transfers: Sit to stand stand by assist Stand to sit stand by assist Bed to reclining chair stand by assist Reclining chair to bed stand by assist Gait: Instructed patient with level surface ambulation of 20 feet requiring stand by assist. Elizabeth decreased. Step height decreased. Moderate shortness of breath. trunk bent forward. Balance: Static Sitting: Normal Dynamic Sitting: Normal Static Standing: Fair Dynamic Standing: Fair Special Tests: Mobility Limitations Standardized Measure [facility] AM-PAC 6 clicks Basic Mobility Inpatient Short Form: Raw Score: 18 CMS Score: 47% deficit Informed Consent/Education: Patient was instructed in purpose of PT consult and plan of care. Agreeable to proceed with established PT POC to achieve personal goals. Assessment: Patient presents with clinical signs and symptoms consistent with current/admitting diagnoses that have resulted to mobility limitations, gait instability, generalized weakness, and overall ADL decline as demonstrated by the following impairment level findings: 1. Impaired standing balance 2. Impaired activity tolerance 3. Limitation of joint range of motion in [] 4. Shortness of breath 5. Swelling Impairments are contributing to the following functional limitations: 1. Difficulty with ambulation without assistive device and physical assistance 2. Increased completion time for mobility ADL performance 3. Increased risk for falls 4. Difficulty with managing steps alone safely Patient is [place] a 84304 moderate complexity based on the following: History: 81-year-old male with past medical history as indicated above Examination: Demonstrable impairment in strength, balance, and mobility level with underlying impairments and functional limitations as exhibited above as well as deficit score of 47% utilizing the [facility] Mobility Inpatient Short Form Presentation: Evolving Decision Makin moderate complexity Goals: Goals X1 week 1. Supine-Sit independent 2. Sit-Supine independent 3. Sit-Stand independent 4. Stand-Sit independent with FWW 5. Bed-Chair independent with FWW 6. Chair-Bed independent with FWW 7. Independent gait on level surface with use of FWW for at least 50 feet without report of pain nor dyspnea 8. Independent stair negotiation while holding onto no rails for at least 6 steps without report of pain nor dyspnea 9. Good static and dynamic standing balance/tolerance Plan of Care/Treatment Plan: 1-2x/day, 7 days/week x 1 week. Plan of care has been reviewed with the [employer] ADMINISTRATOR providing the service under Physical Therapy direction. Initiate Physical Therapy intervention for pain management as needed, strengthening, bed mobility, transfers, gait, stairs, balance training, and use of assistive device. DISCHARGE RECOMMENDATIONS: [] Home with no services [] [X] Home with services. Home when cleared by hospitalist. Patient will benefit from home health PT services in order to progress mobility level using least restrictive assistive ambulatory device, assess home safety, identify additional equipment needs, and establish a functional maintenance program that will increase ability of patient to remain at home. [] Home with outpatient PT [] [] SNF for continued rehabilitation [] [] Shelter Care [] [] SNF versus LTC based on ability to participate and progress [] TREATMENT CODE/TIME: 9716 2 x 20 minutes, 9753 0 x 10 minutes beginning at 15:58 PM Thank you for the opportunity to participate in the care of this patient. Ivelisse Hart PT, DPT, CLT [facility] [place], [place]
--- NOTE | 2021-10-08 16:13 | CMPROGNOTE_ITS ---
- If Service Date Differs Date of service: 10/08/21 Time of Service: 16:13 Care Management Progress Note S/O: Timi is being closely monitored and treated for respiratory failure and bilateral pleural effusions. Timi is sitting up in his chair when CM met with him. He is 95% at 4.5 L NC, which per patient is his baseline. He is [facility], CM left message with Tammy at the [facility], and is awaiting a call back. A: 81 year old male admitted to [facility] on 10/07/21 for Acute and chronic respira tory failure P: Anticipate, Timi will discharge home via private vehicle with family vs EMS transport, when medically ready. He will need Oxygen to transport, and is on 4.5 L NC baseline. Timi will follow up with community providers and discharge plan of care as prescribed. CM will continue to follow.
[2021-10-08] MEDS: Furosemide 100 MG/10 ML VIAL 80 MG IVP (16:41)
[2021-10-08] MEDS: Normal Saline Flush 10 ML SYR IVP ×2 (16:42→19:27)
--- NOTE | 2021-10-08 16:54 | PHA.REVIEW ---
Pharmacy Admission Review - Admission Clinical Review Pulmonary hypertension (Acute) COVID-19 (Acute) Hyperkalemia (Acute) Diabetes mellitus type 2 in obese (Acute) Essential hypertension (Acute) CKD (chronic kidney disease) stage 4, GFR 15-29 ml/min (Acute) Pleural effusion (Acute) NSTEMI (non-ST elevated myocardial infarction) (Acute) Acute and chronic respiratory failure (Acute) No Known Allergies Allergy (Unverified 10/06/21 20:14) Resuscitation Status Full Code Height 5 ft 11 in Weight 121.2 kg - Comments Comments/Follow Ups: watch renal function, K+ - Renal Dosing Renal Dosing: BUN 58 mg/dL (7-18) H 10/08/21 05:57 Creatinine 2.8 mg/dL (0.70-1.30) H 10/08/21 05:57 Medications needing adjustments: Reviewed (crcl = 27, apixiban adjusted from 5 mg BID to 2.5 mg BID) - Anticoagulation Anticoagulation: Hgb 9.3 g/dL (13.5-17.5) L 10/08/21 05:57 Hct 30.1 % (40.0-50.0) L 10/08/21 05:57 Plt Count 283 10^3/uL (130-400) 10/08/21 05:57 Creatinine 2.8 mg/dL (0.70-1.30) H 10/08/21 05:57 DVT Prophylaxis: Reviewed Medications: Apixaban Therapeutic Anticoagulation: Reviewed Medications: Apixaban (apixiban 2.5 mg BID (adjusted from 5 mg BID)) - Opiate Usage Evaluate Pain Scale/Pains Meds: N/A - Relevant Labs Sodium 138 mmol/L (136-145) 10/08/21 05:57 Potassium 5.2 mmol/L (3.5-5.1) H 10/08/21 05:57 Chloride 105 mmol/L (98-107) 10/08/21 05:57 Magnesium 1.8 mg/dL (1.8-2.4) 10/08/21 05:57 Electrolytes, C-Reactive P, ESR: Reviewed (hyperkalemia, received 10 g of Lokelma last night (K+ from 5.8 to 5.2 today)) - DM Control DM Control: Glucose 103 mg/dL (74-106) 10/08/21 05:57 Finger Stick Blood Glucose 134 Finger Stick Blood Glucose 134 Finger Stick Blood Glucose 134 Finger Stick Blood Glucose 178 Finger Stick Blood Glucose 178 Finger Stick Blood Glucose 178 Insulin Dosing: Reviewed (controlled, takes metformin at home which is ordered here plus insulin aspart sliding scale with meals (has only received a few units, most glucose readings below sliding scale cut off)) - Heart Failure/MN Heart Failure/MN: Troponin I 177 ng/L (<or=60) H* 10/07/21 05:31 NT-Pro-B Natriuret Pep 08167 pg/mL (<300) H 10/06/21 18:35 EF%, STEVEN's, B-Blockers, Diuretics: Reviewed (furosemide 80 mg BID started (not on diuretics at home). metolazone 5 mg x 1. trop, BNP high) - BP Control BP Control: Blood Pressure 108/67 Blood Pressure 125/80 Blood Pressure 125/75 If elevated: N/A (WNL. takes hydralazine 20 mg TID, metoprolol tartrate 25 mg BID) - Qtc Review If Elevated: N/A (no EKG to review) - IV to PO Switch IV Medications: Reviewed (switch lasix IV to PO when possible) - Home Meds Home Med List reviewed: Reviewed (no information on Dr. Elizabeth) - Current meds Current Medication Order Review: Reviewed
[2021-10-08] MEDS: Apixaban 2.5 MG TAB PO (19:26)
[2021-10-08] MEDS: Atorvastatin 20 MG TAB PO (19:27)
[2021-10-08] MEDS: Simvastatin 40 MG TAB PO (19:27)
[2021-10-08] MEDS: Azithromycin 250 MG TAB 500 MG PO (20:29)
[2021-10-08] MEDS: Albuterol 2.5 MG/3 ML INH SOLN VIAL UPD (20:38)
[2021-10-09] VITALS (11 sets, daily range): BP systolic 104–126; BP diastolic 63–72; PULSE 64–92; RESP 19–24; TEMP 36–36.6; O2SAT 92–96
[2021-10-09] MEDS: Tiotropium/Olodaterol 10 PUFF INHALER 2 PUFF IH (08:02)
[2021-10-09] MEDS: hydrALAZINE 10 MG TAB 20 MG PO ×3 (08:05→19:45)
[2021-10-09] MEDS: glipiZIDE 5 MG TAB PO ×2 (08:05→16:28)
[2021-10-09] MEDS: Furosemide 100 MG/10 ML VIAL 80 MG IVP ×2 (08:05→16:27)
[2021-10-09] MEDS: Polyethylene Glycol 3350 17 GM PACKET PO (08:05)
[2021-10-09] MEDS: Apixaban 2.5 MG TAB PO ×2 (08:05→19:47)
[2021-10-09] MEDS: metFORMIN 500 MG TAB 1000 MG PO ×2 (08:05→16:28)
[2021-10-09] MEDS: guaiFENesin 600 MG TABCR PO ×2 (08:05→19:46)
[2021-10-09] MEDS: Magnesium Oxide 400 MG TAB PO ×2 (08:05→19:46)
[2021-10-09] MEDS: Tamsulosin 0.4 MG CAPCR 0.8 MG PO (08:06)
[2021-10-09] MEDS: Metoprolol 25 MG TAB PO ×2 (08:06→19:46)
[2021-10-09] MEDS: Insulin Aspart 300 UNITS/3 ML PEN SC (12:08)
[2021-10-09] MEDS: Acetaminophen 325 MG TAB PO ×2 (12:09→21:36)
[2021-10-09] MEDS: Docusate Sodium 100 MG CAP PO ×2 (12:09→19:45)
--- NOTE | 2021-10-09 14:39 | CHAPLAIN ---
Timi was up in the chair when I visited. 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 Timi said he was hospitalized in [place], [place] and ended up quarantined there for 10 days when he came down with COVID. His was up to visit yesterday and he suggested she stay home today. He said he has felt well until he turned 81 and then things changed.
--- NOTE | 2021-10-09 14:47 | W.PM.PROGNOT ---
Date of Service Date of service: 10/09/21 Time of Service: 14:47 Assessment and Plan Assessment and plan (1) Acute and chronic respiratory failure: Status: Acute Assessment and plan: Pts baseline supplemental O2 need is 4.5L. Now back to baseline. Multifactorial including COPD and diastolic heart failure and pulmonary hypertension. Continue pulmonary treatment as prescribed by avionics systems integration specialist. Resume diuresis at Lasix 80 mg IV twice daily. (2) NSTEMI (non-ST elevated myocardial infarction): Status: Acute Assessment and plan: Troponin at [facility] was 245 (normal is <76). Repeat at [facility] on admission 229 > 117 Demand ischemia. Echocardiogram w/o wall motion abnormalities. EF of 65% Monitor. No known h/o CAD. EKG from [facility] showed controlled atrial fibrillation with no acute ST elevation or depression. No repeat EKG was done after admission here. (3) COPD (chronic obstructive pulmonary disease): Status: Chronic Assessment and plan: Medication list from [facility] does not show any medications/inhalers for COPD. PRN albuterol updrafts ordered. Pulmonary initiated Stiolto. Mucinex. Vibrapep and IS. Outpt PFT's and f/u with pulmonary ([facility] so needs outpt referral from PCP to f/u with pulmonary) (4) CKD (chronic kidney disease) stage 4, GFR 15-29 ml/min: Status: Acute Assessment and plan: According to records from [facility], his baseline creatine in Nov was in the 1.25 range. Creatinine at [facility] at time of this current evaluation was 2.7. Monitor; particularly while diuresing. (5) Essential hypertension: Status: Acute Assessment and plan: His lisinopril was stopped when at [place] and his hydralazine was doubled from 10mg TID to 20mg TID. Monitor. (6) Diabetes mellitus type 2 in obese: Status: Acute Assessment and plan: Cont his home dose of glipizide. Restart metformin. ACHS fingerstick glucose monitoring. Sensitive sliding scale insulin ordered. Diabetic carb controlled diet. (7) Hyperkalemia: Status: Acute Assessment and plan: Improved down to 5.2 after dose of Lokelma. (8) COVID-19: Status: Acute Assessment and plan: According to patient and his [place] records, he was positive on 8/11. Maintained then on his usual supplemental O2 per [place]. Still + by PCR but is > 10 days from initial positive test; no Covid precautions. Subjective Subjective Interval history since last seen: Patient less dyspneic at rest but still gets dyspneic w/ any activity. he diuresed 3450 mL yesterday and 1250 mL since midnight last night. His wt is down to 117 kg from 121 kg. He states his usual wt is around 245 (111 kg). His BUN and creatinine are unchanged (58 and 2.8). His potassium is down to 5.2. he admits that he has not been following a low sodium diet (eating [employer] takeout and pizza) and he has not been compliant w/ taking his lasix. he states that he can not go out shopping or out around his property on his 4 [place] without having to void multiple times per day. I explained to him w/ his right heart failure, that if he is not compliant w/ diet and meds that he is going to retain fluids, gain wt and become dyspneic. Exam Narrative Exam Narrative: Obese male sitting up in his chair he is alert and oriented Lungs with diffuse bilateral rales Heart is irregularly irregular at a controlled rate Abdomen is obese soft and nontender Legs with 2+ pitting edema Objective Last Vital Signs Temp 36.5 C 10/09/21 11:28 Pulse 64 10/09/21 11:28 Resp 20 10/09/21 11:28 BP 106/69 10/09/21 11:28 Pulse Ox 92 10/09/21 11:28
--- NOTE | 2021-10-09 14:52 | PT.INTREAT ---
PT Notes Visit Reasons: Acute hypoxic respiratory failure,Acute chronic re Inpatient Physical Therapy Treatment Note [facility] Date: 10/09/21 SUBJECTIVE: Timi states that he gets out of wind and therefore falls because his legs get weak. OBJECTIVE: [] PAIN: c/o penile pain from the catheter. BED MOBILITY/TRANSFERS Sit-stand: SBA Stand-sit: SBA GAIT Assistive Device: FWW Weight bearing: AT Assist: CGA Distance: approx 20' within room. in am along with marching in place 3 x 15 sec. In pm session he ambulated approx 25' within room and marched in placed 2 x 20 sec. Deviation: sitting rest periods as well as cues for proper breathing techniques. THEREX: global LE strengthening in am: LAQ x 12, seated hip flex x12, ab/add x 10, SLR with assistance x 10 and AP x10. In pm, LAQ x15, seated hip flex x 15, ab/add x 10, rows x 10 and GH flex/OH x 10 HR x8. ASSESSMENT: tolerated session well. Reminders to conserve his energy including slower more controlled mvmt patterns. Avoiding quick paced ambulation and transfers as this tends to use energy quickly. Also cued him for proper breathing techniques. He is a mouth breather and I also noted him to occasionally hold his breathe. PLAN: will continue to work on his strength and endurance. May try ambulating in hallway with wc to follow vs ambulating in room. TREATMENT CODE/TIME: 25 min in am and 25 min in pm. [id number], [id number]
--- NOTE | 2021-10-09 16:23 | CMPROGNOTE_ITS ---
- If Service Date Differs Date of service: 10/09/21 Time of Service: 16:24 Care Management Progress Note S/O: Timi is being closely monitored and treated for respiratory failure and bilateral pleural effusions. Timi is sitting up in his chair when CM met with him. He is 93% at 4.5 L NC, afebrile and working with PT. [facility], [facility], and is awaiting a call back. A: 81 year old male admitted to [facility] on 10/07/21 for Acute and chronic respirat ory failure P: Anticipate, Timi will discharge home via private vehicle with family vs EMS transport, when medically ready. He will need Oxygen to transport, and is on 4.5 L NC baseline. Timi will follow up with community providers and discharge plan of care as prescribed. CM will continue to follow.
[2021-10-09] MEDS: Normal Saline Flush 10 ML SYR IVP (16:28)
[2021-10-09] MEDS: Simvastatin 40 MG TAB PO (19:46)
[2021-10-09] MEDS: Atorvastatin 20 MG TAB PO (19:46)
[2021-10-09] MEDS: Azithromycin 250 MG TAB PO (19:46)
[2021-10-09] MEDS: Senna TAB 1 TAB PO (21:36)
[2021-10-10 03:40] VITALS: BP 133/74; PULSE 84; RESP 19; TEMP 36.3; O2SAT 93
[2021-10-10 07:26] VITALS: PULSE 102
[2021-10-10 07:30] VITALS: BP 120/70; PULSE 74; RESP 20; TEMP 35.7; O2SAT 92
[2021-10-10] MEDS: Tiotropium/Olodaterol 10 PUFF INHALER 2 PUFF IH (08:05)
[2021-10-10] MEDS: Tamsulosin 0.4 MG CAPCR 0.8 MG PO (08:18)
[2021-10-10] MEDS: hydrALAZINE 10 MG TAB 20 MG PO ×3 (08:18→20:26)
[2021-10-10] MEDS: Magnesium Oxide 400 MG TAB PO ×2 (08:18→20:26)
[2021-10-10] MEDS: metFORMIN 500 MG TAB 1000 MG PO ×2 (08:18→17:27)
[2021-10-10] MEDS: Docusate Sodium 100 MG CAP PO ×2 (08:18→20:26)
[2021-10-10] MEDS: guaiFENesin 600 MG TABCR PO ×2 (08:19→20:26)
[2021-10-10] MEDS: Metoprolol 25 MG TAB PO ×2 (08:19→20:26)
[2021-10-10] MEDS: Apixaban 2.5 MG TAB PO ×2 (08:19→20:26)
[2021-10-10] MEDS: Normal Saline Flush 10 ML SYR IVP (08:19)
[2021-10-10] MEDS: glipiZIDE 5 MG TAB PO ×2 (08:19→17:27)
[2021-10-10] MEDS: Furosemide 100 MG/10 ML VIAL 80 MG IVP (08:19)
--- NOTE | 2021-10-10 09:36 | CMPROGNOTE_ITS ---
- If Service Date Differs Date of service: 10/10/21 Time of Service: 09:36 Care Management Progress Note S/O: Timi is being closely monitored and treated for respiratory failure and bilateral pleural effusions. Timi is sitting up in his chair when CM met with him. He is 92% at 4 L NC, afebrile and working with PT. [facility] is [facility], CM left message with Tammy at the [place], and is awaiting a call back. Per patient, he has a O2 concentrator at home which goes up to 5 L. CM will continue to follow. A: 81 year old male admitted to [facility] on 10/07/21 for Acute and chronic respiratory failure P: Anticipate, Timi will discharge home via private vehicle with family vs EMS transport, when medically ready. He will need Oxygen to transport, and is on 4.5 L NC baseline. Timi will follow up with community providers and discharge plan of care as prescribed. CM will continue to follow.
[2021-10-10] MEDS: acetaZOLAMIDE 250 MG TAB 500 MG PO (09:46)
[2021-10-10 11:30] VITALS: BP 94/62; PULSE 78; RESP 20; TEMP 35.3; O2SAT 97
--- NOTE | 2021-10-10 13:10 | PT.INTREAT ---
Date of service: 10/10/21 Time of Service: 08:44 PT Notes Visit Reasons: Acute hypoxic respiratory failure,Acute chronic re Inpatient Physical Therapy Treatment Note [facility] Date: 10/10/2021 SUBJECTIVE: Timi is pleasant and agreeable to participating in PT. He reports that he does not walk far because I run out of wind quickly. He reports compliance with his IS and acapella devices. OBJECTIVE: PAIN: Patient reports my butt and back get sore BED MOBILITY/TRANSFERS Sit-stand: S Stand-sit: S GAIT Assistive Device: FWW Weight bearing: Full Assist: SBA Distance: 20' x2 in a.m.; 30' + 40' in p.m. Deviation: Patient requires seated rests due to SOB, cueing for appropriate breathing techniques, cueing for posture with use of FWW, 4.5L O 2 via NC THEREX: Patient was instructed in several seated exercises including: heel raises, ankle pumps, LAQ and hip flexion. He requires cueing for appropriate pacing with ther ex completion. Patient demonstrates use of IS x5 and acapella x5 with cueing for pacing. ASSESSMENT: Patient tolerated session with c/o increased SOB with all activity, occasionally requiring cueing for proper breathing techniques. Patient was able to tolerate a progression in gait distance, although requires cueing for pacing. PLAN: Continue with gait training and global strengthening and general conditioning for improved mobility and activity tolerance. TREATMENT CODE/TIME: Session 1: 24 minutes; [id number] x2 (08:44) Session 2: 15 minutes; [id number] (13:43)
[2021-10-10 14:27] VITALS: BP 103/65; PULSE 92; RESP 18; TEMP 36.1; O2SAT 92
--- NOTE | 2021-10-10 17:38 | PGE_ITS ---
Date of Service Date of service: 10/10/21 Time of Service: 17:38 Assessment and Plan Assessment and plan (1) Acute and chronic respiratory failure: Status: Acute Assessment and plan: acute on chronic respiratory failure 2nd to pulmonary edema, pulmonary hypertension, COPD complicated by NSTEMI from demand ischemia. EKG from [facility] showed Afib @ controlled rate of 69 bpm w/ RBB and baseline artifact but no ST elevation or depression. he has had no CP through his hosital course. Echocardiogram done here on 10/07 demonstrated normal LV size, thickness and systolic function w/ LVEF 60% and no RWMA. however, he has mod. ESTHELA and mod. RV enlargement w/ normal RV systolic fxn but w/ severe pulm. HTN (RVSP 75 mm). He has mod. TR and PI. He has MAC w/ mild MR and aortic sclerosis w/ only trace AI. He was given small doses of lasix at [facility] (20 mg) and another 40 mg after admission but this was increased to 80 mg IV Q12h and he has now diuresed quite well putting out 4 to 5 liters urine output per day for past couple days and his wt is down to 118 kg from admission wt of 121 kg. I will switch him to oral torsemide 40 mg daily along w/ diamox 500 mg daily. Upon discharge I will put him on spironolactone. (2) Pulmonary hypertension: Status: Acute Assessment and plan: as above. he needs further evaluation as outpatient through the [place] including left and right heart cath, PFT, and PSG and V/Q scan. I think his pulm HTN is combination of COPD and ASIF; doubt chronic thromboembolic disease given his chronic apixaban use for afib. (3) COPD (chronic obstructive pulmonary disease): Status: Chronic Assessment and plan: Medication list from [facility] does not show any medications/inhalers for COPD. PRN albuterol updrafts ordered. Pulmonary initiated Stiolto. Mucinex. Vibrapep and IS. Outpt PFT's and f/u with pulmonary (He is [place] so needs outpt referral from PCP to f/u with pulmonary) (4) NSTEMI (non-ST elevated myocardial infarction): Status: Acute Assessment and plan: Troponin at [facility] was 245 (normal is <76). Repeat at [facility] on admission 229 > 117 Demand ischemia. Echocardiogram w/o wall motion abnormalities. EF of 65% Monitor. No known h/o CAD although suspect he has some underlying CAD. reportedly he has had remote right and left heart cath done at [facility]. Will ask nursing to obtain reports. Per my discussion w/ Dr. Rea on Thursday, he needs a thorough complete workup for PHTN including V/Q, PSG, PFT's, evaluation for ischemic HD; may need repeat cardiac caths. (5) Diabetes mellitus type 2 in obese: Status: Acute Assessment and plan: d/t severity of his CKD he should not be on glipizide nor metformin. I have stopped both. Will continue Novolog SSI and add Jardiance (6) Essential hypertension: Status: Acute Assessment and plan: His lisinopril was stopped when at [place] and his hydralazine was doubled from 10mg TID to 20mg TID. Monitor. (7) CKD (chronic kidney disease) stage 4, GFR 15-29 ml/min: Status: Acute Assessment and plan: According to records from [facility], his baseline creatine in Nov was in the 1.25 range. Creatinine at [facility] at time of this current evaluation was 2.7. Monitor; particularly while diuresing. (8) Hyperkalemia: Status: Acute Assessment and plan: Related to CKD Lokalma x 1. Monitor. (9) COVID-19: Status: Acute Assessment and plan: According to patient and his [place] records, he was positive on 09/19. Maintained then on his usual supplemental O2 per NC. Still + by PCR but is > 10 days from initial positive test; no Covid precautions. Subjective Subjective Interval history since last seen: Patient is breathing much better. He tolerated ambulating around his room. Still has baseline oxygen of 4 and half liters per minute per nasal cannula. Pulse oximetry is running 90 to 96%. Although his weight is still 118 kg his overall fluid loss is net -5 L from yesterday and so far since midnight last night he is net -4700 mL. I have discontinued his IV Lasix and put him on oral torsemide as well as Diamox. Because of his chronic kidney disease he really should not be on glipizide and metformin. I discontinued both in favor of Jardiance and insulin. He is currently on NovoLog sliding scale insulin sensitive scale. We will start him on once a day Lantus. Patient asked a lot of questions about how he accumulate all this fluid and how he supposed to work on his breathing. He seems to have little insight as to the underlying cause of his congestive heart failure and pulmonary pretension and COPD except that he does understand that his COPD was from smoking. I think Mr. Iraheta has some dementia and that he asked the same questions over and over again. He is concerned that if he has to take diuretics he will be able to make it to the b athroom and will be able to tolerate trips outside his home. I explained to him that he needs to time his diuretics around his trips. Exam Narrative Exam Narrative: Obese white male who is sitting up in his chair at able to talk in prolonged conversations without getting dyspneic. Neck is supple he has overt JVD Lungs are clear anteriorly and posteriorly his lungs are clearing as well I do not even hear basilar rales at this time. Heart is irregularly irregular but not tachycardic Abdomen is obese soft and nontender Lower extremities with trace to 1+ edema of his ankles and tibia. Objective Last Vital Signs Temp 36.1 C L 10/10/21 14:27 Pulse 92 H 10/10/21 14:27 Resp 18 10/10/21 14:27 BP 103/65 10/10/21 14:27 Pulse Ox 92 10/10/21 14:27
[2021-10-10 20:14] VITALS: BP 122/73; PULSE 77; RESP 20; TEMP 36.8; O2SAT 96
[2021-10-10] MEDS: Senna TAB 1 TAB PO (20:26)
[2021-10-10] MEDS: Simvastatin 40 MG TAB PO (20:26)
[2021-10-10] MEDS: Atorvastatin 20 MG TAB PO (20:26)
[2021-10-10] MEDS: Azithromycin 250 MG TAB PO (20:26)
--- NOTE | 2021-10-10 23:46 | NUR.NOTE ---
Nursing Note: HS Snack given for blood sugar of 83.
[2021-10-11] VITALS: TEMP 36.2
--- NOTE | 2021-10-11 01:25 | NUR.NOTE ---
Nursing Note: Patient stated he needs help with Dietary Education. He stated he and his spouse eating mostly, beans and issa, pizza, Ukrainian food. He is not aware of foods high in Sodium and Saturated Fats. Patient also mentioned his losing his ability to drive, work and enjoy his Hobbies. Causing, sadness and a lack of care to live he stated. Patient ensured this typewriter mechanic would pass on his request for dietary/nutritional assistance. Easy to read Heart Healthy Dietary Printouts will be given to patient cierra.
[2021-10-11 06:45] LABS: BUN 71 mg/dL (7-18); CREATININE 3.4 mg/dL (0.70-1.30); Calcium 8.1 mg/dL (8.5-10.1); Chloride 99 mmol/L (98-107); Glucose 74 mg/dL (74-106); NT-proBNP 4600 pg/mL (<300); Potassium 4.5 mmol/L (3.5-5.1); Sodium 137 mmol/L (136-145)
[2021-10-11] MEDS: Tiotropium/Olodaterol 10 PUFF INHALER 2 PUFF IH (07:47)
[2021-10-11 07:48] VITALS: BP 150/76; PULSE 95; RESP 20; TEMP 35.8; O2SAT 96
[2021-10-11] MEDS: Torsemide 20 MG TAB 40 MG PO (08:52)
[2021-10-11] MEDS: guaiFENesin 600 MG TABCR PO (08:53)
[2021-10-11] MEDS: Magnesium Oxide 400 MG TAB PO (08:53)
[2021-10-11] MEDS: Tamsulosin 0.4 MG CAPCR 0.8 MG PO (08:53)
[2021-10-11] MEDS: Docusate Sodium 100 MG CAP PO (08:54)
[2021-10-11] MEDS: Apixaban 2.5 MG TAB PO (08:54)
[2021-10-11] MEDS: hydrALAZINE 10 MG TAB 20 MG PO (08:54)
[2021-10-11] MEDS: Empaglifozin 10 MG TAB PO (08:54)
[2021-10-11] MEDS: Metoprolol 25 MG TAB PO (08:54)
--- NOTE | 2021-10-11 09:53 | PDOC.CMPRO ---
- If Service Date Differs Date of service: 10/11/21 Time of Service: 09:53 Care Management Progress Note S/O: Timi is being closely monitored and treated for respiratory failure and bilateral pleural effusions. Per MD, Timi is medically ready for discharge. Per pt, he typically transports via EMS. CM has a call into [facility] service,unfortunately they have no availability. LILLIE has a call into [employer], and is awaiting a call back. [facility] is [facility], CM left message with Tammy at the [place], and is awaiting a call back. Per patient, he has a O2 concentrator at home which goes up to 5 L. CM will continue to follow. A: 81 year old male admitted to [facility] on 10/07/21 for Acute and chronic respiratory failure P: Anticipate, Timi will discharge home via private vehicle with family vs EMS transport, when medically ready. He will need Oxygen to transport, and is on 4.5 L NC baseline. Timi will follow up with community providers and discharge plan of care as prescribed. CM will continue to follow.
--- NOTE | 2021-10-11 13:42 | DSE_ITS ---
Date of service: 10/11/21 Time of Service: 13:42 DS: Diagnosis Discharge Diagnosis (1) Acute and chronic respiratory failure: Status: Acute Asessment and Plan: Multifactorial but primarily secondary to pulmonary hypertension from COPD and probable underlying ASIF with exacerbation from dietary indiscretion including consumption of high salt containing foods leading to fluid and salt retention. Patient present with pleural effusions and pulmonary edema. Patient did sustain an non-ST elevation MD with no acute EKG changes But had an elevated troponin level on admission of 229 which came down to 177 the day following admission. No further troponins were obtained. Echocardiogram was obtained showed normal left ventricular size and function with an EF of 60% no wall motion abnormalities. He has moderately dilated right atrium and right ventricle and moderate tricuspid regurgitation and moderate pulmonary valve insufficiency with severe pulmonary hypertension with RVSP of 75 mm. Patient responded well to IV diuretics with improvement in his respiratory status and improvement with his peripheral edema. He was transitioned over from IV Lasix to torsemide. Jardiance was added for goal-directed therapy of his CHF as well as treatment of his diabetes mellitus. (2) NSTEMI (non-ST elevated myocardial infarction): Status: Acute Asessment and Plan: Outpatient stress MPI should be considered if 1 has not been done recently or if he has not had a recent cardiac catheterization. (3) COPD (chronic obstructive pulmonary disease): Status: Chronic Asessment and Plan: Patient is back to his baseline oxygen needs of 4.5 L/day. Patient should be referred to a crm technical lead for completion work-up of his pulmonary hypertension including PSG and PFTs. If recent right and left heart catheterizations have not been done this should be considered he should be referred to cardiology for this. (4) CKD (chronic kidney disease) stage 4, GFR 15-29 ml/min: Status: Acute Asessment and Plan: Patient will need a follow-up BMP next week particularly since he will be kept on diuretic therapy (5) Essential hypertension: Status: Acute Asessment and Plan: Patient is to continue his metoprolol and hydralazine as previously prescribed. STEVEN inhibitor/ARB were previously discontinued during his hospitalization at [place] (6) Diabetes mellitus type 2 in obese: Status: Acute Asessment and Plan: Metformin and glipizide were discontinued as they are contraindicated with his advancing renal failure. Patient will be started on low-dose Lantus 5 units daily. He was covered with sliding scale insulin NovoLog while hospitalized.. (7) Hyperkalemia: Status: Resolved Asessment and Plan: Resolved with Lokelma and IV diuretics. (8) COVID-19: Status: Resolved Asessment and Plan: Patient's nasal PCR was still positive on admission but patient was asymptomatic and was beyond the 10-day period from when he first contracted COVID-19 and therefore he was felt to not be contagious. Discharge Plan Disposition Patient Disposition: HOME W/HOME HEALTH SERVICE Condition: Improving Discharge Details Reason For Visit: Acute hypoxic respiratory failure,Acute chronic re Admit Date/Time: 10/06/21 17:10 Admit Provider: Guanakito Jordan Attending Provider: Guanakito Jordan Primary Care Provider: Jonathan Parson [facility] Course Hospital Course: Is a 1-year-old male with a past medical history of CKD, COPD, chronic respiratory failure requiring home oxygen at 4.5 L/min, recent COVID-19 infection, essential hypertension, pulmonary hypertension, restrictive lung disease was transferred from [facility] to [facility] on 10/07/2021. He was found to be acute on chronic respiratory failure and imaging showed him to have moderate to large bilateral pleural effusions. He was placed on BiPAP. He was given 20 mg of Lasix in the ER at [facility] and subsequently was given 40 mg of Lasix IV upon admission to [facility]. Review of his records revealed the previously been treated for COVID-19 at [facility] earlier in the month. Upon this admission was found to be in pulmonary edema with pleural effusions. He had normal procalcitonin level. Lactate level slightly elevated 2.6 WBCs were normal. proBNP is elevated 18,049. He was also found to have elevated troponin that was felt to be a type II demand ischemia his troponin level was 245 at [facility] where is their normal limit is up to 76. Repeat level was 229 upon admission [facility]. Was also found to be in chronic atrial fibrillation at a controlled rate. His diabetes mellitus has been treated as an outpatient with metformin and glipizide however because of his renal failure metformin is contraindicated. During his hospitalization he had hypoglycemia from the glipizide and this was discontinued. Blood sugars were monitored before meals and at bedtime he was covered with low-dose NovoLog sliding scale. Echocardiograms performed showed no wall motion abnormalities had normal left ventricular function with a EF of 65% serial troponins remained flat EKG was performed at [facility] showed a controlled atrial fibrillation rate with no acute ST elevation or depression. He has hyperkalemia was treated with a dose of Lokelma and IV Lasix. At the time of discharge his potassium was normalized at 4.5. He was aggressively diuresed with IV Lasix as proBNP came down from a high of 18,000 down to 4600. Did have some prerenal azotemia with a BUN of 71 and a creatinine of 3.4 at the time of discharge. Otherwise for his hospital stay his creatinine stayed right around 2.9. Patient was switched from IV Lasix to oral torsemide 40 mg daily. He will be discharged home on low-dose Lantus 5 units daily along with Jardiance 10 mg daily. Have a repeat BMP next week. For his COPD was started on Stiolto Respimat 2 puffs inhaled daily. This was at the recommendation of the crm technical lead Dr. Shellie Rea saw the patient while he was here. She recommends further work-up of his pulmonary hypertension recommends VQ scan as well as left and right heart catheterization and a polysomnogram. She is willing to follow the patient but would need a referral from his primary care provider. Home Meds and New Rx's Prescriptions: New Jardiance 10 mg Tablet 10 mg PO QAM Qty: 30 0RF Stiolto Respimat 2.5-2.5 mcg/actuation Mist 2 puff inhalation DAILY Qty: 4 0RF torsemide 20 mg Tablet 40 mg PO DAILY Qty: 60 0RF insulin glargine [Lantus Solostar U-100 Insulin] 100 unit/mL (3 mL) insulin pen 5 unit subcut QAM Qty: 15 0RF Continued multivitamin Tablet 1 tab PO DAILY hydralazine 10 mg Tablet 10 mg PO TID polyethylene glycol 3350 [Miralax] 17 gram Powder In Packet 17 g PO DAILY sennosides-docusate sodium [Senokot-S] 8.6-50 mg Tablet 1 tab PO .BID PRN simvastatin 40 mg Tablet 40 mg PO DAILY carboxymethylcellulose sodium [Refresh Tears] 0.5 % Drops 1 drp ophthalmic (eye) PRN PRN aspirin 81 mg Tablet,Chewable 81 mg PO DAILY metoprolol tartrate 25 mg Tablet 25 mg PO BID apixaban 5 mg Tablet 5 mg PO BID Discontinued glipizide 10 mg Tablet 10 mg PO BID metformin 1,000 mg Tablet 1,000 mg PO BID Discharge Instructions Instructions: Insulin Glargine (By injection), Heart Failure (DC), Pulmonary Edema (DC), Hypoglycemia in a Person with Diabetes (DC), How to Give an Insulin Injection (DC) Stand Alone Forms: Nursing Discharge Form Referrals: Vidhi Leon [NURSE PRACTITIONER] - (PLEASE CALL FOR FOLLOW UP WITH ONE OF THE [facility] PROVIDERS WITHIN TWO WEEKS.) Activity:: Activity as Tolerated Equipment/Supplies:: No Equipment Needed Diet:: Carb Counting Discharge Orders Discharge Orders: Discharge Order (Routine); Ordered 10/11/21 Ordered By: Jorge Clinton Ambulatory Orders: Basic Metabolic Panel (Routine) Timeframe: 1 Week Location: None Selected Ordered By: Jorge Son DS: Summary Time Spent with Patient providing and/or coordinating discharge services: Greater than 30 minutes Specific discharge activities: Interview/exam of patient; review of discharge instructions, completion of prescriptions/discharge instructions; discussion w/ nursing and CM; documentation of hospital visit Status at Discharge Functional status at discharge: uses cane/walker Overall status at discharge: patient is back to baseline Mental Status: mental status grossly normal Speech and Movement: speech and movement normal Mood: congruent mood Affect: normal affect Exam Narrative Exam Narrative: Elderly white male sitting up in his chair he is alert and oriented. Lungs are clear to auscultation with prolonged expiratory phase no rhonchi wheezes or rales Heart is irregularly irregular controlled rate Abdomen is obese soft and nontender Lower extremities reveal marked improvement in his edema. There is just a trace of edema down his legs. He can actually see his ankles. Psych Mental Status: mental status grossly normal Speech and Movement: speech and movement normal Mood: congruent mood Affect: normal affect DS: Data Vitals/I&O Vitals and I&O: Vital Signs Temperature 35.8 C L 10/11/21 07:48 Temperature Source Tympanic 10/11/21 07:48 Pulse 95 H 10/11/21 07:48 Pulse Rhythm Irregular 10/11/21 08:50 Pulse 81 10/07/21 12:02 Respiratory Rate 20 10/11/21 07:48 Respiratory Effort Non-Labored 10/11/21 08:50 Respiratory Depth Normal 10/11/21 08:50 Respiratory Pattern Normal 10/11/21 08:50 Blood Pressure 150/76 H 10/11/21 07:48 Blood Pressure Mean 73 10/07/21 12:02 Blood Pressure Position Supine 10/06/21 18:22 Pulse Oximetry 96 10/11/21 07:48 Oxygen Delivery Method Nasal Cannula 10/11/21 07:48 Oxygen Flow Rate 4 10/11/21 07:48 Fraction of Inspired Oxygen (FIO2) 40 10/08/21 07:38 Pain Level 0 10/11/21 07:48 Comment 10/10/21 11:30 Intake & Output 10/10/21 10/11/21 10/11/21 23:59 11:59 23:59 Intake Total 200 / 600 400 / 600 Output Total 1700 / 5400 2350 / 2350 Balance -1700 / -5180 -2150 / -1750 400 / -1750 Weight 117.9 kg Intake: Oral 200 / 600 400 / 600 Output: Urine 1700 / 5400 2350 / 2350 Other: Urine Color Yellow Pale Urine Appearance Clear Clear Stool Size Moderate Stool Characteristics Soft Hard Brown Data Completed and Pending Labs on day of discharge: Labs from last 24 hours 10/11/21 05:38 Sodium 137 Potassium 4.5 Chloride 99 Carbon Dioxide 32.0 Anion Gap 6.0 BUN 71 H Creatinine 3.4 H Est GFR (CKD-EPI 2020) 17.20 Glucose 74 Calcium 8.1 L NT-Pro-B Natriuret Pep 4600 H PFSH All Active Problems (Updated 10/11/21 @ 13:58 by Jorge Son MD) Pulmonary hypertension (Acute) Diabetes mellitus type 2 in obese (Acute) Essential hypertension (Acute) CKD (chronic kidney disease) stage 4, GFR 15-29 ml/min (Acute) COPD (chronic obstructive pulmonary disease) (Chronic) Pleural effusion (Acute) NSTEMI (non-ST elevated myocardial infarction) (Acute) Acute and chronic respiratory failure (Acute) Social History Smoking/Tobacco Use Status: Unknown Smoking risk assessment performed?: Yes
--- NOTE | 2021-10-11 14:04 | CMDISCH_ITS ---
- If Service Date Differs Date of service: 10/11/21 Time of Service: 14:04 LACE Index Scoring Tool - Questions: Length of Stay (in days): 4 - 6 Acuity (Admit via E.D.?): Yes Comorbidities: Previous M.I., Diabetes w/o Complication, Chronic Pulmonary Disease, Liver or Renal Disease E.D. Visits: 1 - Answers: Total Score: 13 Risk of Readmission: High Risk Care Management Discharge Reason for Hospitalization: Acute and chronic respiratory failure Discharge Plan: Discharge home via private vehicle with , [facility] provided patient with 2 hospital O2 tanks, which patients agrees to return. CM and patients spoke with [facility] and they will meet patient for a lift assist after they pull into their driveway. [facility] and will be sent to the patient from [facility]. In the meantime, RX's for 7 days is given to pts to bring to local pharmacy of choice. [facility] RN/PT/OT services are ordered. Repeat BMP lab is ordered for 1 week. Timi will call [facility] PCP at [facility] on Thursday to schedule a Hosp. follow up appointment within 2 weeks. CM LMOM for Tammy/ RN CM for the [facility] to notify her of Timi's discharge and reviewed this note.In addition, CM also advised Tammy that pt will likely need assistance with transportation to his follow up appointments. Patient/Family Education Needs: Review discharge instructions, limitations, medications and plan to follow up with community provider. ask me three. Services Needed at Discharge: Home Health Care Services ([facility] RN/PT/OT services. CM notified.), Transportation ([facility] will provide a Lift assist. )
[2021-10-11 14:21] VITALS: BP 94/57
--- NOTE | 2021-10-11 15:00 | PT.INTREAT ---
PT Notes Visit Reasons: Acute hypoxic respiratory failure,Acute chronic re Inpatient Physical Therapy Treatment Note [facility] Date: 10/11/21 SUBJECTIVE: Timi states that he is miserable. He can't understand why he looses breath so quickly. In pm he reports that he is going home. OBJECTIVE: [] PAIN: c/o swollen penis and sores on bottom. BED MOBILITY/TRANSFERS pt seated in recliner. Sit-stand: SBA Stand-sit: SBA GAIT Assistive Device: FWW Weight bearing: full Assist: CGA Distance: 45' in am and 40' in pm Deviation: seated rest break in am. THEREX: global LE strengthening while seated in chair. AP, LAQ, hip flex, ab/add. Sit to stand xfers x2. ASSESSMENT: tolerated session well. continues to c/o SOB with prolonged standing and/or ambulation. Continues to need reminders to pace himself in order to conserve energy. PLAN: pt states he is d/c to home later today. TREATMENT CODE/TIME: 30 min in am and 20 min in pm. ([id number], [id number])
--- NOTE | 2021-10-11 18:00 | INDS_ITS ---
PT Notes Visit Reasons: Acute hypoxic respiratory failure,Acute chronic re Physical Therapy Inpatient Discharge Summary Date: 10/11/2021 Dates of service: 09/11/2021 through 10/11/2021 This is a clinical summary of care provided for the duration of dates listed above. No charge was made in the completion of this documentation. Referring Doctor:? Jorge Son MD PT Orders: PT CONSULT: Eval/Treat Precautions: Fall. Standard. Activity as tolerated. ? COVID-19 positive on 09/19/21,? no longer on precautions per hospitalist. Patient Profile/Admitting Diagnosis:? Patient is an 81-year-old male patient who presented to the [facility] on 10/07/[facility]21 with diagnoses of acute on chronic respiratory failure, NSTEMI, pleural effusion, COPD, CKD, essential hypertension, type II DM, hyperkalemia, and positive COVID- 19 as of 09/19/2021. PMHX: All Active Problems?(Updated 10/07/21 @ 14:52 by Shellie Rea MD) Pulmonary hypertension (Acute) COVID-19 (Acute) Hyperkalemia (Acute) Diabetes mellitus type 2 in obese (Acute) Essential hypertension (Acute) CKD (chronic kidney disease) stage 4, GFR 15-29 ml/min (Acute) COPD (chronic obstructive pulmonary disease) (Chronic) Pleural effusion (Acute) NSTEMI (non-ST elevated myocardial infarction) (Acute) Acute and chronic respiratory failure (Acute) Social History/Home Situation: Patient lives with in a private home with 5 steps to enter without rails.? He was independent with all aspects of ADLs three weeks ago but declined around the time that he was diagnosed with COVID-19.? For the past weeks,? his walking is only limited to up to 15 steps before onset of fatigue and shortness of breath. Equipment Owned/DME: FWW Subjective: NT. See most recent JOY LOADING MACHINE OPERATOR notes. Objective: General Observation: NT. See most recent JOY LOADING MACHINE OPERATOR notes. Mental Status: NT. See most recent JOY LOADING MACHINE OPERATOR notes. Pain: NT. See most recent JOY LOADING MACHINE OPERATOR notes. ROM: Right Upper Extremity: ? Shoulder Flexion WFL. Shoulder abduction WFL. Elbow flexion WFL. Wrist flexion WFL. Functional opening and closing of hand WFL. Left Upper Extremity:? Shoulder Flexion WFL. Shoulder abduction WFL. Elbow flexion WFL. Wrist flexion WFL. Functional opening and closing of hand WFL. Right Lower Extremity: Hip flexion WFL. Hip abduction WFL. Knee flexion WFL. Ankle dorsiflexion WFL. Ankle plantarflexion WFL. Left Lower Extremity: Hip flexion WFL. Hip abduction WFL. Knee flexion WFL. Ankle dorsiflexion WFL. Ankle plantarflexion WFL. Strength: Right Upper Extremity: Shoulder flexors 5/5. Shoulder abductors 4/5. Elbow flexors 4/5. Elbow extensors 4/5. Bobbin Dumper strong. Left Upper Extremity: Shoulder flexors 5/5. Shoulder abductors 4/5. Elbow flexors 4/5. Elbow extensors 4/5. Bobbin Dumper strong. Right Lower Extremity: Hip flexors 4/5. Hip abductors 4/5. Knee flexors 5/5. Knee extensors 4/5. Ankle dorsiflexors 4/5. Ankle plantarflexors 4/5. Left Lower Extremity: Hip flexors 4/5. Hip abductors 4/5. Knee flexors 5/5. Knee extensors 4/5. Ankle dorsiflexors 4/5. Ankle plantarflexors 4/5. BED MOBILITY/TRANSFERS ? Sit-stand: S? Stand-sit: S ? GAIT? Assistive Device: FWW? Weight bearing: Full Assist: SBA? Distance: 20' x2 in a.m.; 30' + 40' in p.m.? Deviation: Patient requires seated rests due to SOB, cueing for appropriate breathing techniques, cueing for posture with use of FWW, 4.5L O 2 via NC ? Balance: Static Sitting: Normal Dynamic Sitting: Normal Static Standing: Fair Dynamic Standing: Fair Assessment: Patient presents with clinical signs and symptoms consistent with current/admitting diagnoses that have resulted to mobility limitations, gait instability, generalized weakness, and overall ADL decline as demonstrated by the following impairment level findings: 1.? Impaired standing balance 2.? Impaired activity tolerance 3.? Limitation of joint range of motion in [] 4.? Shortness of breath 5.? Swelling Impairments are contributing to the following functional limitations: 1.? Difficulty with ambulation without assistive device and physical assistance 2.? Increased completion time for mobility ADL performance 3.? Increased risk for falls 4.? Difficulty with managing steps alone safely Goals: Goals X1 week 1. Supine-Sit independent NOT MET 2. Sit-Supine independent NOT MET 3. Sit-Stand independent NOT MET 4. Stand-Sit independent with FWW NOT MET 5. Bed-Chair independent with FWW NOT MET 6. Chair-Bed independent with FWW NOT MET 7. Independent gait on level surface with use of FWW for at least 50 feet without report of pain nor dyspnea NOT MET 8. Independent stair negotiation while holding onto no rails for at least 6 steps without report of pain nor dyspnea NOT MET 9. Good static and dynamic standing balance/tolerance NOT MET DISCHARGE RECOMMENDATIONS: [] ? Home with no services [] [X] ? Home with services.? Home when cleared by hospitalist.? Patient will benefit from home health PT services in order to progress mobility level using least restrictive assistive ambulatory device, assess home safety, identify additional equipment needs, and establish a functional maintenance program that will increase ability of patient to remain at home. [] ? Home with outpatient PT [] [] ? SNF for continued rehabilitation [] [] ? Skilled Nursing Care [] [] ? SNF versus LTC based on ability to participate and progress [] TREATMENT CODE/TIME: NC Thank you for the opportunity to participate in the care of this patient. Ivelisse Hart PT, DPT, CLT [facility] [place], [place]
--- NOTE | 2021-10-12 11:46 | NUR.NOTE ---
Nursing Note:pt called at 11:40 requesting medication counseling on pts discharge med list. medications were explained to at this time, all questions were answered.
== END 2021-10-11 16:57 | disposition home health service (06) | DRG 280 ==
LOC: ICU 10-07 12:16 → MS 10-07 13:02
PROVIDERS: Internal Medicine; Admitting Provider Family Medicine; PCP Emergency Medicine; Referring Provider Family Medicine; Visit Provider Family Medicine
DX: I21.4 Non-ST elevation (NSTEMI) myocardial infarction (principal); J96.21 Acute and chronic respiratory failure with hypoxia; I13.0 Hypertensive heart and chronic kidney disease with heart failure and stage 1 through stage 4 chronic kidney disease, or unspecified chronic kidney disease; I27.20 Pulmonary hypertension, unspecified; J44.9 Chronic obstructive pulmonary disease, unspecified; E87.5 Hyperkalemia; U07.1 COVID-19; E11.22 Type 2 diabetes mellitus with diabetic chronic kidney disease; I48.91 Unspecified atrial fibrillation; Z79.01 Long term (current) use of anticoagulants; Z99.81 Dependence on supplemental oxygen; I50.30 Unspecified diastolic (congestive) heart failure; N18.4 Chronic kidney disease, stage 4 (severe); E66.9 Obesity, unspecified; Z68.36 Body mass index [BMI] 36.0-36.9, adult; I45.10 Unspecified right bundle-branch block; I08.3 Combined rheumatic disorders of mitral, aortic and tricuspid valves; G47.33 Obstructive sleep apnea (adult) (pediatric)
CPT/HCPCS: 36415; 80048; 82805; 84145; 94640; 97110; 97162; 97530; 36600; 71045; 83735; 83880; 84484; 85025; 93306; 94660; 94667; 99223; 99232; 99233; 99239; J1940; J1941; J7613